=== PATIENT | female | born 1990 | race Caucasian/White ===

== ENCOUNTER 2021-11-21 04:50 | Emergency (ER) | payer MEDICAID ==
[~2021-11-21] VITALS: Ht 172.7 cm; Wt 121.0 kg
[2021-11-21 06:12] VITALS: BP 125/80
[2021-11-21] MEDS ORDERED: LIDOCAINE 5% PATCH TOP STA (06:12)
[2021-11-21] MEDS ORDERED: TOPUD PO (06:20)
[2021-11-21] MEDS ORDERED: LIDO700A30 TP (06:27)
== END 2021-11-21 06:40 | disposition home or self-care (01) ==
LOC: ER 04:50
DX: M54.9 Dorsalgia, unspecified (principal); J45.909 Unspecified asthma, uncomplicated; Z98.890 Other specified postprocedural states
CPT/HCPCS: 99283

== ENCOUNTER 2021-12-01 16:56 | Emergency (ER) | payer MEDICAID ==
[~2021-12-01] VITALS: Ht 172.7 cm; Wt 123.0 kg
[~2021-12-01 16:56] MED LIST: LIDO700A30 TP; TOPUD PO
[2021-12-01 20:48] LABS: BASOPHILS % 0.5 % (0.0-2.0); EOSINOPHILS % 1.2 % (0.0-5.0); HEMATOCRIT. 39.5 % (36.0-48.0); LYMPHOCYTES % 24.3 % (20.0-50.0); MEAN CORPUSCULAR HEMOGLOBIN 29.1 pg (28.0-32.0); MEAN CORPUSCULAR VOLUME 88.7 fL (81.0-99.0); MEAN PLATELET VOLUME 8.1 fl (7.4-10.4); MONOCYTES % 7.5 % (2.0-8.0); NEUTROPHILS % 66.5 % (40.0-76.0); PLATELET 340 x1000/uL (130-400); RED BLOOD CELL COUNT 4.45 mill/uL (4.2-5.4); RED CELL DISTRIBUTION WIDTH 15.5 % (11.6-14.6)
[2021-12-01 20:58] LABS: CHLORIDE 107 mEq/L (98-107)
[2021-12-01 21:18] LABS: B-HCG QUANTITATIVE 6326 mIU/mL (<3)
[2021-12-02 00:24] VITALS: BP 132/87
== END 2021-12-02 00:27 | disposition home or self-care (01) ==
LOC: ER 16:56
DX: O20.0 Threatened abortion (principal); Z3A.01 Less than 8 weeks gestation of pregnancy
CPT/HCPCS: 36415; 76801; 80053; 84702; 85025; 86850; 86900; 99284

== ENCOUNTER 2022-02-16 16:42 | Emergency (ER) | payer MEDICAID ==
[~2022-02-16] VITALS: Ht 172.7 cm; Wt 114.0 kg
[2022-02-16 16:48] VITALS: BP 140/82
== END 2022-02-16 20:47 | disposition left against medical advice (07) ==
LOC: ER 16:42
DX: Z53.21 Procedure and treatment not carried out due to patient leaving prior to being seen by health care provider (principal)